=== PATIENT | male | born 1960 | race Caucasian/White ===

== ENCOUNTER 2023-02-10 06:47 | Emergency (ER) | payer OTHER, SELFPAY ==
[2023-02-10 06:56] VITALS: BP 132/94; PULSE 104; RESP 18; TEMP 36.8; O2SAT 93; BMI 25.0
[2023-02-10 07:19] VITALS: BP 132/94; PULSE 95; O2SAT 93
--- NOTE | 2023-02-10 07:20 | ED_ITS ---
HPI - URI/Sore Throat General: Chief Complaint: Upper Respiratory Infection Stated Complaint: cough Time Seen by Provider: 02/10/23 06:48 Source: patient Mode of arrival: ambulatory History of Present Illness: 62-year-old male who presents emergency room with viral upper respiratory symptoms including headache myalgias low-grade fever and nonproductive cough no diarrhea. No nonsmooth. 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 MD elicited complaint: fever and cough Onset (ago): day(s) Exacerbating factors: nothing Relieving factors: nothing Associated symptoms: Reports congestion, cough, ear or mastoid pain, fever(s), headache(s), nasal congestion and rhinorrhea; Deny abdominal pain, change in voice, chills, chest pain, diarrhea, epistaxis, myalgias, nausea, rash, short of breath, sinus pain, stiffness, sore throat or vomiting Review of Systems Const: Reports: fever(s); Denies: chills ENMT: Reports: ear or mastoid pain and nasal congestion; Denies: epistaxis or sinus pain Card: Denies: chest pain Resp: Denies: dyspnea GI: Denies: abdominal pain, nausea, vomiting or diarrhea : Denies: dysuria, urinary frequency or urinary urgency Musc: Denies: neck pain or back pain Skin/Breast: Denies: rash Neuro: Reports: headache(s) Physical Exam Const: COMMON NORMALS: no acute distress GENERAL APPEARANCE: cooperative and comfortable ORIENTATION/CONSCIOUSNESS: Yes awake, Yes oriented to person, Yes oriented to place and Yes oriented to time HENMT: COMMON NORMALS: normocephalic, atraumatic and hearing grossly normal bilaterally HEAD & SCALP: normocephalic and atraumatic Resp: COMMON NORMALS: normal respiratory effort, No retractions, No use of accessory muscles and clear to auscultation bilaterally AUSCULTATION: clear to auscultation bilaterally Cardio: COMMON NORMALS: regular rate, regular rhythm and No murmurs present (Cardio) RATE: regular rate RHYTHM: regular rhythm GI: COMMON NORMALS: Soft to palpation and No hepatosplenomegaly present AUSCULTATION: Yes normoactive bowel sounds PALPATION: Yes Soft to palpation, No Tenderness to palpation present (GI), No Guarding due to palpation present (GI) and Yes No hepatosplenomegaly present Extremity: COMMON NORMALS: normal to inspection, capillary refill normal, no clubbing, cyanosis or edema, no calf tenderness and no pedal edema Neuro: SENSORIUM/ORIENTATION: Yes oriented to person, Yes oriented to place and Yes oriented to time Skin: COMMON NORMALS: no rashes or lesions noted GENERAL SKIN EXAM: no rashes or lesions noted Course Vital Signs: Vital signs: Vital Signs Temperature 98.3 F 02/10/23 06:56 Pulse Rate 95 02/10/23 07:19 Respiratory Rate 18 02/10/23 06:56 Blood Pressure 132/94 02/10/23 07:19 Pulse Oximetry 93 02/10/23 07:19 Oxygen Delivery Me thod Room Air 02/10/23 07:19 MDM - URI/Sore Throat Medical Decision Making Flu negative. COVID is pending. Will discharge patient home contact him the results when available he would be a candidate for Paxlovid and does wish to take it if it is positive. Advised him not to go to work until we get his COVID test back. 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 Medical Records I reviewed the patient's medical records. Lab Data I reviewed the patient's lab results. Laboratory Results Influenza Type A Ag negative (Negative) 02/10/23 07:40 Influenza Type B Ag negative (Negative) 02/10/23 07:40 All radiology interpretation(s) finalized by discharge Discharge Plan Discharge Patient Disposition: Home Clinical Impression: Viral infection Condition: Stable Discharge Orders: Discharge ED (Routine); Ordered 02/10/23 Ordered By: Inocencio Barnes Referrals: Vu Zavala MD [Primary Care Provider] - Discharge Diet: Usual diet Discharge Activity: Increase activity as tolerated Patient Instructions: Opioid Safety, Pain Management Activity Restrictions/Additional Instructions: Thank you for choosing [facility] for your healthcare needs today. Please realize this is an emergency room and that we are providing you with a medical screening exam and this may not be complete and all inclusive of all the testing and or work up that you may need to determine your ailment or severity of your illness. It is very important that you follow up as instructed or that you return to the Emergency Department should you have concerns or if your condition changes or worsens in any way. Your flu swab were negative your COVID is pending we will contact you with results when it becomes available. If it is positive you would be a candidate for Paxlovid and we can call that into the pharmacy of your choice. Coding Level of Care Code ED [employer] Engineer for Jose Hudson
[2023-02-10 08:17] LABS: Influenza A by IFA negative (Negative); Influenza B by IFA negative (Negative)
[2023-02-10 08:29] VITALS: BP 140/95; PULSE 94; O2SAT 93
[2023-02-10 09:44] LABS: Adenovirus Not Detected (NOT DETECT); Chlamydia Pneumoniae Not Detected (NOT DETECT); Coronavirus 229E,HKU1,NL63,OC4 Not Detected (NOT DETECT); Human Metapneumovirus Not Detected (NOT DETECT); Human Rhinovirus/Enterovirus Not Detected (NOT DETECT); Influenza A Not Detected (NOT DETECT); Influenza A H1 Not Detected (NOT DETECT); Influenza A H1-2009 Not Detected (NOT DETECT); Influenza A H3 Not Detected (NOT DETECT); Influenza B Not Detected (NOT DETECT); Mycoplasma Pneumoniae Not Detected (NOT DETECT); Parainfluenza Virus Type 1 Not Detected (NOT DETECT); Parainfluenza Virus Type 2 Not Detected (NOT DETECT); Parainfluenza Virus Type 3 Not Detected (NOT DETECT); Parainfluenza Virus Type 4 Not Detected (NOT DETECT); Respiratory Syncytial Virus A Not Detected (NOT DETECT); Respiratory Syncytial Virus B Not Detected (NOT DETECT)
[2023-02-10 09:49] LABS: SARS-COV-2 Detected (NOT DETECT)
--- NOTE | 2023-02-10 10:17 | PC.NURSE ---
PT CALLED TO NOTIFY OF COVID STATUS AND RX. PT PREFERRED [facility] DID NOT CARRY MEDICATION. PT TEXT ON CHARGE PHONE AND REPLIED TO SEND IT TO HIS HOME PHARMACY. HOME PHARMACY ALSO DOES NOT CARRY MEDICATION. PT NOTIFIED. PT REFUSED RX.
== END 2023-02-10 08:30 | disposition home or self-care (01) ==
PROVIDERS: Emergency Provider Family Medicine; PCP Family Medicine
DX: U07.1 COVID-19 (principal)
CPT/HCPCS: 87635; 87804; 99283

== ENCOUNTER 2023-03-13 06:31 | Outpatient (CLI) | payer OTHER, SELFPAY ==
[2023-03-13 07:03] LABS: Basophils % 0.5 %; Eosinophils # 0.7 10^3/uL (0.0-0.8); Eosinophils % 7.7 %; Hematocrit 52.3 % (37-53); Lymphocytes # 2.1 10^3/uL (0.8-4.8); Lymphocytes % 23.2 %; Mean Corpuscular Hemoglobin 31.2 pg (27-33); Mean Corpuscular Volume 89.1 fl (82-101); Mean Platelet Volume 8.7 fL (7.4-10.4); Monocytes # 0.9 10^3/uL (0.2-0.9); Neutrophils # 4.98 10^3/uL (1.8-7.7); Neutrophils % 56.4 %; Nucleated Red Blood Cells % 0 %; Platelet Count 311 10^3/cmm (157-399); Red Blood Count 5.87 10^6/uL (3.85-5.65); Red Cell Distribution Width 12.7 % (12.1-15.1); White Blood Count 8.82 10^3/uL (3.29-11.43)
[2023-03-13 07:30] LABS: Alanine Aminotransferase 25 U/L (0-41); Albumin Level 3.7 g/dL (3.5-5.2); Alkaline Phosphatase 55 U/L (40-130); Anion Gap 15.3 (5-19); Aspartate Amino Transferase 24 U/L (0-40); Blood Urea Nitrogen 16 mg/dL (8-23); Calcium 8.9 mg/dL (8.5-10.5); Carbon Dioxide 25 mmol/L (22-29); Chloride 103 mmol/L (98-107); Chol HDL Ratio 3.22 mg/dL (1.0-5.00); Cholesterol 132 mg/dL (0-200); Globulin 2.5 g/dL (1.3-4.6); Glomerular Filtration Rate 97.6 mL/min (90-130); Glucose 100 mg/dL (65-115); HDL Cholesterol 41 mg/dL (60-100); LDL Cholesterol Calculated 76 mg/dL (50-129); LDL HDL Ratio 1.85 RATIO (0.00-3.22); Osmolality Calculated 289 mOsm/kg (285-295); Potassium 4.3 mmol/L (3.5-5.1); Prostate Specific Antigen Scr 5.37 ng/mL (0-4); Sodium 139 mmol/L (136-145); Total Bilirubin 0.6 mg/dL (0.15-1.2); Total Protein 6.2 g/dL (6.6-8.7); Triglycerides 77 mg/dL (0-150)
== END 2023-03-13 06:32 | disposition home or self-care (01) ==
LOC: LAB 06:39
PROVIDERS: PCP Family Medicine; Visit Provider Family Medicine
DX: Z00.00 Encounter for general adult medical examination without abnormal findings (principal)
CPT/HCPCS: 36415; 80053; 80061; 85025; G0103

== ENCOUNTER 2023-05-19 06:27 | Outpatient (CLI) | payer OTHER, SELFPAY ==
--- NOTE | 2023-05-19 07:08 | MR_ITS ---
WS: [id number] MRI RIGHT ANKLE WITHOUT CONTRAST. COMPARISON: None Multiplanar, multisequence imaging is performed without contrast. There is marked thickening of the Achilles tendon. AP diameter is 1.6 cm. Length of the tendon enlarg ement is 8.0 cm. There is rounding of the normal anterior surface of the tendon. Heterogeneous, mixed but predominant increased T2 signal in the posterior tendon consistent with partial tear. Tear is pr edominant along the posterior and slightly medial portion of the tendon. There is mild peritendinous fluid. There is no full-thickness tear. The insertion site is normal. There is a moderate amount of e jacinda in [place]ager fat pad. No retrocalcaneal bursitis. Small amount of fluid in the posterior ankle reces s. The visualized flexor houses longus tendon appears normal. The peroneal tendon sheath as visualized a ppears appropriate. There is mild narrowing of the ankle joint. No loose body or osteochondral lesion . No marrow edema or fracture. IMPRESSION: 1. Marked tendinopathy involving the Achilles tendon with a partial tear approximately 6 cm superior from the calcaneal insertion site. 2. AP diameter of the Achilles tendon is 1.6 cm with increased signal and mild peritendinous edema. 3. Kager fat pad edema.
== END 2023-05-19 06:28 | disposition home or self-care (01) ==
LOC: RAD 06:27
PROVIDERS: PCP Family Medicine
DX: M25.571 Pain in right ankle and joints of right foot (principal); S86.011A Strain of right Achilles tendon, initial encounter; R60.9 Edema, unspecified
CPT/HCPCS: 73721

== ENCOUNTER 2024-03-11 06:47 | Outpatient (CLI) | payer OTHER, SELFPAY ==
[2024-03-11 07:22] LABS: Basophils % 0.4 %; Eosinophils # 0.1 10^3/uL (0.0-0.8); Eosinophils % 3.1 %; Hematocrit 51.5 % (37-53); Lymphocytes # 1.3 10^3/uL (0.8-4.8); Mean Corpuscular HGB Conc 34.2 g/dL (30-55); Mean Corpuscular Hemoglobin 30.5 pg (27-33); Mean Corpuscular Volume 89.3 fl (82-101); Mean Platelet Volume 8.8 fL (7.4-10.4); Monocytes # 0.6 10^3/uL (0.2-0.9); Monocytes % 13.1 %; Neutrophils # 2.43 10^3/uL (1.8-7.7); Nucleated Red Blood Cells % 0 %; Platelet Count 269 10^3/cmm (157-399); Red Blood Count 5.77 10^6/uL (3.85-5.65); Red Cell Distribution Width 12.4 % (12.1-15.1); White Blood Count 4.51 10^3/uL (3.29-11.43)
[2024-03-11 07:54] LABS: Albumin Level 4.2 g/dL (3.5-5.2); Alkaline Phosphatase 56 U/L (40-130); Aspartate Amino Transferase 27 U/L (0-40); Blood Urea Nitrogen 19 mg/dL (8-23); Carbon Dioxide 29 mmol/L (22-29); Chloride 98 mmol/L (98-107); Chol HDL Ratio 2.86 mg/dL (1.0-5.00); Cholesterol 146 mg/dL (0-200); Globulin 2.6 g/dL (1.3-4.6); Glomerular Filtration Rate 97.3 mL/min (90-130); Glucose 144 mg/dL (65-115); HDL Cholesterol 51 mg/dL (60-100); LDL Cholesterol Calculated 88 mg/dL (50-129); LDL HDL Ratio 1.73 RATIO (0.00-3.22); Osmolality Calculated 287 mOsm/kg (285-295); Sodium 136 mmol/L (136-145); Total Bilirubin 0.8 mg/dL (0.15-1.2); Total Protein 6.8 g/dL (6.6-8.7); Triglycerides 37 mg/dL (0-150)
[2024-03-11 08:05] LABS: Alanine Aminotransferase 23 U/L (0-41)
== END 2024-03-11 06:48 | disposition home or self-care (01) ==
PROVIDERS: PCP Family Medicine; Visit Provider Family Medicine
DX: Z00.00 Encounter for general adult medical examination without abnormal findings (principal)
CPT/HCPCS: 36415; 80053; 80061; 84153; 85025

== ENCOUNTER 2024-07-28 14:52 | Outpatient (CLI) | payer SELFPAY ==
[2024-07-28 16:03] LABS: Prostate Specific Antigen Scr 3.86 ng/mL (0-4)
== END 2024-07-28 14:53 | disposition home or self-care (01) ==
LOC: LAB 14:55
PROVIDERS: PCP Family Medicine; Visit Provider Dermatology
DX: Z13.9 Encounter for screening, unspecified (principal)

== ENCOUNTER 2024-10-27 06:18 | Outpatient (CLI) | payer SELFPAY | END 2024-10-27 06:19 | disposition home or self-care (01) | LOC: LAB 06:19 | PROVIDERS: PCP Family Medicine; Visit Provider Dermatology | DX: Z01.89 Encounter for other specified special examinations (principal) ==